=== PATIENT | female | born 1980 | race Two or more races ===

== ENCOUNTER 2023-06-01 10:51 | Emergency (ER) | payer MEDICAID, SELFPAY ==
--- NOTE | ~2023-06-01 | XR_ITS ---
EXAMINATION: XR SHOULDER, RIGHT CLINICAL INFORMATION: Right shoulder pain. COMPARISON: None available. TECHNIQUE: AP external rotation, Grashey, scapular Y, and axillary views of the right shoulder. FINDINGS: Glenohumeral and acromioclavicular alignment is anatomic with normal joint space. No displaced fracture or dislocation. Possible small calcification along the midshaft of the humerus measuring 6 mm seen only on one view. XR/XR shoulder RT min 2V IMPRESSION: No acute abnormality.
[2023-06-01 12:04] VITALS: BP 180/99; PULSE 92; RESP 18; TEMP 36.5; O2SAT 98; BMI 28.3
--- NOTE | 2023-06-01 12:15 | ED_ITS ---
HPI - Extremity Problem General Chief complaint: Extremity Injury, Upper Stated complaint: r shoulder elbow numbness Time Seen by Provider: 06/01/23 12:01 Source: patient Mode of arrival: ambulatory Limitations: no limitations History of Present Illness HPI Narrative: 43 year old female presents w/ atraumatic r shoulder pain for the past few weeks worsening. 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 Pain is worse with movement particullarly overhead movements and better at rest. Intermittent numbness and tingling reported to CHRISTIANE. Patient states pain is now debilitating and interfering with her activities of daily living. Denies trauma, cp, sob, nausea, vomiting, fevers, chills, headache, vision changes. Related Data Previous Rx's Medication Instructions Recorded cyclobenzaprine 10 mg tablet 10 mg PO BEDTIME PRN muscle spasm 06/01/23 #7 tabs ketorolac 10 mg tablet 10 mg PO TID PRN pain 5 days #15 06/01/23 tabs lidocaine 5 % topical patch 1 patch topical DAILY PRN pain #15 06/01/23 ea Allergies Allergy/AdvReac Type Severity Reaction Status Date / Time morphine Allergy Unknown Unknown Verified 06/01/23 12:04 Penicillins Allergy Unknown Unknown Verified 06/01/23 12:03 Review of Systems Review of Systems: Constitutional : No Weight loss, No Fever, No Chills, No Fatigue, No Malaise ENT/Mouth : No sore throat, No Rhinorrhea Eyes: No Eye Pain, No Swelling, No Redness Cardiovascular : No Chest Pain, No SOB, No Dyspnea on Exertion, No Orthopnea, No Edema, No Palpitations Respiratory : No Cough, No Sputum, No Wheezing Gastrointestinal : No Nausea, No Vomiting, No Diarrhea, No Constipation, No abdominal Pain, No Hematochezia, No Melena Genitourinary : No Dysuria, No Urinary Frequency, No Hematuria, Musculoskeletal : + joint pain, No Myalgias, No Joint Swelling Skin : No Skin Lesions, No rash Neuro : No Weakness, No Numbness, No Dizziness, No Headache Psych : No Anxiety/Panic, No Depression All other systems reviewed and are negative Yes all other systems are reviewed and are negative PMFSH Past Medical History Attestation statement: The following information was validated with the patient. Source: old records reviewed and nursing notes reviewed Social History Social History Alcohol intake: unknown Smoked in Last 30 Days: No Use of substances other than those prescribed or required for medical reasons: No Advance Directives: No Advance Directives Information Provided: No Patient : No Physical Exam Vital Signs: Vital Signs: Last Vital Signs Temp 97.7 F 06/01/23 12:04 Pulse 92 06/01/23 12:04 Resp 18 06/01/23 12:04 BP 180/99 H 06/01/23 12:04 Pulse Ox 98 06/01/23 12:04 O2 Del Method Room Air 06/01/23 12:04 BMI result Body Mass Index 28.3 vss Appearance: Alert.? Oriented X3.? No acute distress.? Head: Normocephalic, atraumatic, no step-offs or deformities Eyes: Pupils equal, round and reactive to light.? CVS: Normal heart rate and rhythm.? Pulses normal.? Respiratory: No respiratory distress.? Breath sounds normal.? Abdomen: Soft and nontender.? Skin: Skin warm and dry.? Normal skin color.? Normal skin turgor.? Extremities: No lower extremity edema.? No calf ttp. 5/5 strength to bilateral upper and lower extremities Full rom to b/l shoulder however slightly uncomfortable rom to R shoulder w/ overhead movements. 2+ radial pulses equal and b/l, no wrist drop, cap refil < 2 seconds equal and b/l. Normal sensation distally b/l to UE. TTP to distal clavicle on r. w/o stepoffs or deformities. Back: No midline tenderness, no C-spine tenderness, full range of motion, no CVA tenderness bilaterally Neuro: Oriented X 3.? No motor deficit.? No sensory deficit. CN 2-12 intact Course Reevaluation(s) Reevaluation #1: xray of right shoulder unremarkable. Pain improved but not gone will give ortho follow up. Educated patient on diagnosis and treatment plan, answered all question, patient verbalizes understanding. At this time patient will be discharged home, advised to return with new or worsening symptoms. Educated on worrisome signs and symptoms and when to return. At this time I feel comfortable discharge home. Time: 14:44 Medications Administered Discontinued Medications Generic Name Dose Route Start Last Admin Trade Name Freq PRN Reason Stop Dose Admin Cyclobenzaprine HCl 10 mg 06/01/23 14:26 06/01/23 14:36 Cyclobenzaprine Hcl 10 Mg Tablet PO 06/01/23 14:27 10 mg ONCE ONE Administration Ketorolac Tromethamine 30 mg 06/01/23 12:58 06/01/23 13:02 Ketorolac Tromethamine 15 Mg/Ml Vial IM 06/01/23 12:59 30 mg ONCE ONE Administration Lidocaine 1 patch 06/01/23 14:26 06/01/23 14:36 Lidocaine 4 % Patch Adh..Patch TRANSDERMA 06/01/23 14:27 1 patch ONCE ONE Administration Protocol Medical Decision Making Medical Decision Making [facility] Narrative: 1228 43 year old female presents w/ atramatic r shoulder pain X a few weeks PE w/ No lower extremity edema.? No calf ttp. 5/5 strength to bilateral upper and lower extremities Full rom to b/l shoulder however slightly uncomfortable rom to R shoulder w/ overhead movements. 2+ radial pulses equal and b/l, no wrist drop, cap refil < 2 seconds equal and b/l. Normal sensation distally b/l to UE. TTP to distal clavicle on r. w/o stepoffs or deformities. Likely inflammatory arthritis vs tendonitis vs rotator cuff injury. Unlikely fx, dislocation, nv compromise or threat to limb Plan- imaging, toradol. Differential Diagnosis Differential Diagnoses: The differential diagnosis associated with the presentation includes Likely inflammatory arthritis vs tendonitis vs rotator cuff injury. Unlikely fx, dislocation, nv compromise or threat to limb Admission/Observation Consideration of admission/observation: Escalation of care including admission/observation considered unlikely Independent Interpretation I performed an independent interpretation of an: Plain X-Ray Radiology Impression Discussion of test interpretation with radiology: I have reviewed the r adiologist's reading. Core Measures AMI core measures followed: Yes Measure exclusions: not indicated Critical Care Time Critical Care Time Critical Care Time: No Discharge Plan Discharge Clinical Impression: Pain in right shoulder Patient Disposition: Home, Self-Care Instructions: Shoulder Pain (ED), Arm Pain (ED) Additional Instructions: Take your medications as prescribed. If you were prescribed antibiotics today, it is important that you take your medication to their entirety, do not skip any doses, do not finish them early. Follow-up with your primary care provider this week. Return to the emergency department with new or worsening symptoms. Such as fevers, chills, chest pain, shortness of breath, nausea, vomiting, dizziness, headache, vision changes, lethargy In case of emergency call 911 ?XR/XR shoulder RT min 2V IMPRESSION: No acute abnormality. Prescriptions: New cyclobenzaprine 10 mg tablet 10 mg PO BEDTIME PRN (Reason: muscle spasm) Qty: 7 0RF ketorolac 10 mg tablet 10 mg PO TID PRN (Reason: pain) 5 Days Qty: 15 0RF lidocaine 5 % adhesive patch,medicated 1 patch topical DAILY PRN (Reason: pain) Qty: 15 0RF Rx Instructions: leave on most painful area for up to 12 hrs Referrals: [facility] [place] Orthopedic Surgeons [Provider Group] - 2 days Physician,None [Primary Care Provider] - 2 days Stand Alone Forms: Work/School Release Interventions: ED Discharge Assessment Last Done: 06/01/23 14:45 Discharge Date/Time: 06/01/23 14:59
[2023-06-01] MEDS: Ketorolac Tromethamine 15 MG/ML VIAL 30 MG IM (13:02)
[2023-06-01] MEDS: Lidocaine 4 % Patch ADH..PATCH 1 PATCH TRANSDERMA (14:36)
[2023-06-01] MEDS: Cyclobenzaprine HCl 10 MG TABLET PO (14:36)
== END 2023-06-01 14:59 | disposition home or self-care (01) ==
PROVIDERS: Emergency Provider Emergency Medicine
DX: M25.511 Pain in right shoulder (principal)
CPT/HCPCS: 73030; 96372; 99284; J1885

== ENCOUNTER 2024-12-14 06:36 | Emergency (ER) | payer OTHER, SELFPAY ==
[2024-12-14 06:45] VITALS: BP 126/76; PULSE 99; RESP 20; TEMP 36.9; O2SAT 98; BMI 28.2
--- NOTE | 2024-12-14 06:57 | MHC.EDTECH ---
Patient brought into triage area,sars/flu/rsv and strep obtained and sent to lab
[2024-12-14 07:32] LABS: IDNOW Serial# 58CA691E; Strep A Nucleic Acid Negative (Negative)
[2024-12-14 07:58] LABS: Influenza A PCR POSITIVE (Negative); Influenza B PCR NEGATIVE (Negative); Resp Syncy Virus RNA Qual PCR NEGATIVE (Negative); SARS COV2 PCR INHOUSE NEGATIVE (Negative)
--- NOTE | 2024-12-14 07:59 | ED_ITS ---
HPI - URI/Sore Throat General Chief Complaint: Upper Respiratory Symptoms Stated Complaint: resp symptoms Time Seen by Provider: 12/14/24 07:29 Source: patient Mode of arrival: ambulatory History of Present Illness ED Provider: Ceci MATAMOROS Narrative: 44-year-old female without significant past medical history presents for complaints of body aches and nasal congestion, cough since yesterday. Related Data Previous Rx's ?Medication ?Instructions ?Recorded cyclobenzaprine 10 mg tablet 10 mg PO BEDTIME PRN muscle spasm 06/01/23 #7 tabs ketorolac 10 mg tablet 10 mg PO TID PRN pain 5 days #15 06/01/23 tabs lidocaine 5 % topical patch 1 patch topical DAILY PRN pain #15 06/01/23 ea oseltamivir 75 mg capsule (Tamiflu) 75 mg PO BID 5 days #10 caps 12/14/24 Allergies Allergy/AdvReac Type Severity Reaction Status Date / Time morphine Allergy Unknown Unknown Verified 12/14/24 06:47 Penicillins Allergy Unknown Unknown Verified 12/14/24 06:47 Review of Systems Review of Systems: Pertinent positives and negatives as stated in [facility] Past Medical History Source: nursing notes reviewed Social History Social History Alcohol intake: unknown Advance Directives: No Advance Directives Information Provided: Yes Do you have a plan to hurt others: No Plan Physical Exam Vital Signs: Vital Signs: Last Vital Signs Temp 98.5 F 12/14/24 06:45 Pulse 99 12/14/24 06:45 Resp 20 12/14/24 06:45 BP 126/76 12/14/24 06:45 Pulse Ox 98 12/14/24 06:45 O2 Del Method Room Air 12/14/24 06:45 BMI result Body Mass Index 28.2 VITAL SIGNS: Reviewed. GENERAL: Well developed, well nourished, in no acute distress. HEAD: Normocephalic/atraumatic EYES: PERRLA, EOMI EARS: Ext canals without abnormality NOSE: Nares patent bilateral OROPHARYNX: no oral lesions noted, posterior pharynx clear and non-erythematous without noted tonsillar enlargement/erythema/exudates NECK: Supple, no adenopathy LUNGS: Normal breath sounds. No adventitious sounds or accessory muscle use. SpO2<98> CARDIOVASCULAR: Regular rate and rhythm without noted murmurs ABDOMEN: Soft, non-tender, non-distended with bowel sounds. MUSCULOSKELETAL: No tenderness, deformities, or effusions noted on gross inspection. EXTREMITIES: No cyanosis, clubbing or edema. SKIN: Inspection of the skin reveals no rashes NEUROLOGIC: Alert and oriented x 4. Strength and sensation to light touch were grossly intact x 4. Medical Decision Making Medical Decision Making [facility] Narrative: 44-year-old female with history and clinical presentation, DD DX: Viral illness back, no clinical suspicion for pneumonia or strep pharyngitis. I reviewed and interpreted all investigations and patient is noted to be flu A positive and will be started on Tamiflu, the script was sent to the pharmacy and she was also encouraged to take Tylenol and ibuprofen for body aches. Differential Diagnosis Differential Diagnoses: The differential diagnosis associated with the presentation includes See above Admission/Observation Consideration of admission/observation: Escalation of care including admission/observation considered Does not meet inpatient level of care. Lab Data MDM Lab Attestation statement: I reviewed the patient's lab results. See above Labs: Lab Results 12/14/24 Range/Units 06:53 Influenza Type A (PCR) POSITIVE A (Negative) Influenza Type B (PCR) NEGATIVE (Negative) RSV RNA Qual (PCR) NEGATIVE (Negative) SARS-CoV-2 RNA (RT-PCR) NEGATIVE (Negative) S. pyogenes GrpA CHRISTIANE Negative (Negative) External Record Review External record reviewed: Prior outpatient labs and Prior outpatient radiology Discharge Plan Discharge Clinical Impression: Viral infection, Influenza Patient Disposition: Home, Self-Care Instructions: Influenza (ED), Viral Syndrome (ED) Additional Instructions: Complete medication as prescribed, recommend [id number] Tylenol/ibuprofen as needed for body [id number]-[id number] greater than 100.4. Continue to drink plenty of fluids. Follow-up with your primary care doctor and do not hesitate to return for any acute worsening of your symptoms. Prescriptions: New oseltamivir [Tamiflu] 75 mg capsule 75 mg PO BID 5 Days Qty: 10 0RF No Action cyclobenzaprine 10 mg tablet 10 mg PO BEDTIME PRN (Reason: muscle spasm) Qty: 7 0RF ketorolac 10 mg tablet 10 mg PO TID PRN (Reason: pain) 5 Days Qty: 15 0RF lidocaine 5 % adhesive patch,medicated 1 patch topical DAILY PRN (Reason: pain) Qty: 15 0RF Rx Instructions: leave on most painful area for up to 12 hrs Print Language: Peruvian
[2024-12-14 08:34] VITALS: BP 126/76; PULSE 99; RESP 20; TEMP 36.9; O2SAT 98
== END 2024-12-14 08:35 | disposition home or self-care (01) ==
PROVIDERS: Physician Assistant Medical; Emergency Provider Student in an Organized Health Care Education/Training Program
DX: J10.1 Influenza due to other identified influenza virus with other respiratory manifestations (principal); B34.9 Viral infection, unspecified; M79.10 Myalgia, unspecified site; R09.81 Nasal congestion; R05.9 Cough, unspecified; Z03.818 Encounter for observation for suspected exposure to other biological agents ruled out
CPT/HCPCS: 0241U; 87651; 99282; 99283

== ENCOUNTER 2025-06-28 07:58 | Emergency (ER) | payer OTHER, SELFPAY ==
--- NOTE | ~2025-06-28 | XR_ITS ---
EXAMINATION: XR CHEST 2 VIEWS HISTORY: pain with palpation COMPARISON: There are no prior studies available for comparison. FINDINGS: PA and lateral views of the chest are submitted. The lungs are expanded and clear. There is no pleural effusion, pneumothorax, or pulmonary vascular congestion. The heart is normal in size. There is mild levoscoliosis of the thoracic spine. XR/XR chest 2V IMPRESSION: Clear lungs. Electronically signed by: Dmitriy Way MD 06/28/2025 08:43 AM EDT
[2025-06-28 08:02] VITALS: BP 154/74; PULSE 79; RESP 16; TEMP 36.3; O2SAT 99; BMI 27.2
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
[2025-06-28] MEDS: Lidocaine 4 % Patch ADH..PATCH 2 PATCH TRANSDERMA (08:57)
[2025-06-28 09:10] VITALS: BP 154/74; PULSE 79; RESP 16; TEMP 36.3; O2SAT 99
== END 2025-06-28 09:10 | disposition home or self-care (01) ==
PROVIDERS: Emergency Provider Emergency Medicine
DX: S13.4XXA Sprain of ligaments of cervical spine, initial encounter (principal); S39.012A Strain of muscle, fascia and tendon of lower back, initial encounter; M54.2 Cervicalgia; R07.89 Other chest pain; R00.2 Palpitations; V43.52XA Car driver injured in collision with other type car in traffic accident, initial encounter; Y93.9 Activity, unspecified; Y92.410 Unspecified street and highway as the place of occurrence of the external cause; Y99.8 Other external cause status
CPT/HCPCS: 71046; 99283

== ENCOUNTER → 2025-06-28 08:28 | Outpatient (BNV) | payer OTHER, SELFPAY | PROVIDERS: Emergency Provider Emergency Medicine; Visit Provider Radiology Diagnostic Radiology | DX: R07.9 Chest pain, unspecified (principal) | CPT/HCPCS: 71046 ==